=== PATIENT | female | born 1960 | race Caucasian/White ===

== ENCOUNTER 2017-02-15 14:53 | Emergency (ER) | payer BC ==
[~2017-02-15] VITALS: Ht 157.5 cm; Wt 90.7 kg
[~2017-02-15 14:53] MED LIST: GABAPENTIN 400400 M1 PO; PANTOPRAZOLE SO40 M1 PO; PROTONIX 40MG T40 MG PO
[2017-02-15 15:08] LABS: HEMOGLOBIN 14.1 g/dL (12.2-16.2); LYMPH # 2.4 K/mm3 (0.7-4.5); LYMPH % 24.4 % (10-50.0)
--- NOTE | 2017-02-15 15:28 | Emergency Room Report ---
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 Y Clinical Suspician of Infection? N Mental Status: 1 - Regular (Normal Baseline) Sepsis Risk:Possible Sepsis Risk Have you (or family members/close friends) recently traveled outside the [place]? N If Yes, where/when: Have you had exposure to infectious disease within the past month? TB? Other? Specify: Source patient, RN notes reviewed, family, RN/MD Exam Limitations no limitations Comment This is a 56-year-old lady arriving to the emergency room with LEFT lower quadrant abdominal pain, subjective fever, body aches for the past one week. Patient denies any nausea, vomiting, diarrhea. She also is complaining with epigastric pain, radiating to the mid chest. She has a history of esophageal strictures, and she typically undergoes an EGD on a yearly basis with Dr. Barrow, who has been performing balloon dilatations on her. It is unclear if she has a history of Bates's esophagus or not. ALLERGIES Coded Allergies: Opiate Agonists (Narcotics) (NARCOTICS) (VOMITING 05/23/12) Home Medications Active Scripts Pantoprazole Sodium (Protonix 40MG TAB) 40 MG PO BID 10 Days Prov: 05/23/12 Reported Medications Gabapentin (Gabapentin 400MG Capsule) 400 MG PO QHS #30 30 Days Pantoprazole Sodium 40 MG PO DAILY #30 30 Days History Medical History General Angina: No [place]: No Hypertension? No Hyperlipidemia? No CHF? No COPD? No Asthma? No Hernia? No CVA? No Seizures? No Diabetes? No UTI? No Stones? Yes GB Disease: Yes Hepatitis? No Cataracts? No Glaucoma? No TB? No Cancer? 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 Hx LMP N/A Family History Family Hx Diabetes No CAD Yes Hypertension No Hyperlipidemia No Cancer Yes TB No Social History Smoking Hx Smoker: Never Smoker Tobacco: No Packs/day N/A Alcohol Alcohol: No Review of Systems All Other Systems Reviewed and Negative Constitutional chills, malaise, weakness Cardiovascular chest pain Gastrointestinal abdominal pain Physical Exam Vital Signs Vital Signs Date Time Temp Pulse Resp B/P Pulse O2 O2 Flow FiO2 Ox Delivery Rate 02/15 1828 98.5 100 16 148/98 96 02/15 1809 105 16 156/105 96 02/15 1455 98.5 107 20 145/113 96 General Appearance normal appearance, WD/WN, mild distress Respiratory Status Yes: trachea midline, chest symmetrical, non tender chest. No: respiratory distress. Lung Sounds bilateral: normal breath sounds, lungs clear. 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 No Comment 1744-patient reevaluated, appears in minimal distress, discussed results obtained. I have given the patient a copy of the CT scan obtained today, both chest plus abdomen/pelvis, and instructed to take such copy to her PCP in order to obtain proper follow-up. Patient will be started on Flagyl plus Levaquin and instructed her to follow-up with Dr. Barrow regarding her diverticulitis. Results/Orders Laboratory Tests 02/15/17 1500: Sodium 139, Potassium 3.6, Chloride 101, Carbon Dioxide 27, BUN 23 H, Creatinine 1.1 H, Estimated Creat Clear 81, Estimated GFR (MDRD) 51 L, Glucose 135 H, Calcium 9.8, Total Bilirubin 0.3, AST 29, ALT 46, Alkaline Phosphatase 109, Creatine Kinase 90, CK-MB (CK-2) Rel Index 0.6, CK and CKMB Interp 0.5, Troponin I < 0.02, Total Protein 8.1, Albumin 3.8, Globulin 4.3 H, Albumin/ Globulin Ratio 0.9 L, WBC 9.9, RBC 4.96, Hgb 14.1, Hct 42.8, MCV 86.3, RDW 14.0 , Plt Count 261, MPV 8.4, Gran % 70.0, Gran # 6.9, Lymphocytes % 24.4, Monocytes % 3.7, Eosinophils % 1.5, Basophils % 0.4, Lymphocytes # 2.4, Monocytes # 0.4, Eosinophils # 0.2, Basophils # 0.0, PUBS MCHC 32.8, MCH 28.3, Influenza Type A Ag NOT DETECTED, Influenza Type B Ag NOT DETECTED Current Medication Orders Sig/Santhosh Start time Last Medication Dose Route Stop Time Status Admin Iopamidol 75 ML ONCE ONE 02/15 183 DCD 02/15 IV 02/15 183 1822 Levofloxacin 500 MG ONCE ONE 02/15 183 DCD 02/15 PO 02/15 183 1824 Metronidazole 500 MG ONCE ONE 02/15 1830 DCD 02/15 PO 02/15 183 1825 Sodium Chloride 10 ML ONCE ONE 02/15 1830 DCD 02/15 IV 02/15 183 1822 Sodium Chloride 50 ML ONCE ONE 02/15 1830 DCD 02/15 IV 02/15 183 1822 Levofloxacin 0 .STK-MED ONE 02/15 1823 DC .ROUTE Metronidazole 0 .STK-MED ONE 02/15 1822 DC .ROUTE Multi-Ingredient GI 0 .STK-MED ONE 02/15 1538 DC Drug PO Pantoprazole Sodium 0 .STK-MED ONE 02/15 1537 DC .ROUTE Multi-Ingredient GI 60 ML ONCE ONE 02/15 1530 DC 02/15 Drug PO 02/15 1531 1538 Pantoprazole Sodium 40 MG ONCE ONE 02/15 1530 DC 02/15 PO 02/15 1531 1538 Sodium Chloride 10 ML PRN PRN 02/15 1515 DCD IV 02/16 1502 Orders Procedure Date/time Status DIET-NOTHING BY MOUTH 02/[address] ABD/PELVIS REQ 02/[address] CHEST W/PE PROTOCOL REQ 02/15 1642 Complete ELECTROCARDIOGRAM REQUEST 02/15 1502 Active IV SALINE LOCK 02/15 1502 Active INFLUENZA A&B ANTIGENS 02/15 1502 Complete CBC WITH AUTO DIFF 02/15 1502 Complete CARDIAC ENZYMES 02/15 1502 Complete CHEM 12 PROFILE 02/15 1502 Complete 12 LEAD EKG-JAMES (INITIAL) 02/15 UNK Active 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 of ischemic chgs, no ectopy, normal QRS, normal MS, no EKG for comparison, non-spec. ST/Twave chgs, ST elevation, ST depression, LBBB, RBBB, ectopy, abnormal Q waves XRAY/CT/US XRAY/CT/US 1 XRAY chest XR interpretation by reviewed by me, discussed w/radiologist Xray Results no infiltrates, normal heart size, normal lung inflation jake XRAY/CT/US 2 XRAY chest XR interpretation by discussed w/radiologist Xray Results see radiologist's report XRAY/CT/US 3 CT abdomen, pelvis CT interpretation by discussed w/radiologist CT Results see radiologist's report Departure Departure Time of Disposition 1811 Disposition DC Home or Self Care(routine) Clinical Impression Primary Impression: Diverticulitis Secondary Impressions: Adrenal nodule Chest pain Qualifiers: Chest pain type: unspecified Qualified Code: R07.9 - Chest pain, unspecified Esophageal stenosis Hiatal hernia Kidney stone Right thyroid nodule Condition STABLE Referrals ARLETTE BARROW Patient Instructions DI for Diverticulitis Additional Instructions Please take the antibiotics prescribed as directed, follow-up with Dr. Arlette Barrow at your earliest convenience. If abdominal pain worse, or any new symptoms, including fever, please return promptly to this emergency room for reevaluation. It is mandatory that he find/identify a new PCP, in order to manage her other medical problems, as soon as possible. Discharge Counseling Counseled pt/family regarding diagnosis, test results, medications/RX, home care, follow up needs Comment Please take the antibiotics prescribed as directed, follow-up with Dr. Arlette Barrow at your earliest convenience. If abdominal pain worse, or any new symptoms, including fever, please return promptly to this emergency room for reevaluation. It is mandatory that he find/identify a new PCP, in order to manage her other medical problems, as soon as possible. Prescriptions Current Visit Scripts Ciprofloxacin HCl (Cipro 500MG TAB) 500 MG PO BID #20 TAB Metronidazole (Flagyl) 500 MG PO TID #30 TAB ED Critical Care Critical Care Yes Time spent 30-74 min Vital system(s) involved: diverticulitis, complexity of care and workup I was present at bedside for Coordinating pt's care, Interpreting EKGs/Strips , During my initial exam, Reviewing lab results, Reviewing old records, Discussing pt condition, For re-examinations, Examining radiographs If Critical Care minutes are documented, the time involved in the performance of seperately reportable procedures was not counted toward critical care time documented. I directly delivered medical care to this critically ill and/or injured patient. Timely evaluation and treatment was necessary to address the significant organ system(s) dysfunction present in this patient. at 1140
[2017-02-15 15:32] LABS: BUN 23 mg/dL (7-18)
[2017-02-15 15:44] LABS: GFR (ESTIMATED) 51 ML/MIN (59-)
--- NOTE | 2017-02-15 16:53 | RADIOLOGY REPORT PS360 ---
CHEST(2 VIEWS-NOT PORTABLE) HISTORY: CHEST PAINS ON AND OFF ORDERING PHYSICIAN: Osbaldo Linton MD PATIENT AGE: 56 years COMPARISON: 05/23/2012 FINDINGS: The cardiomediastinal silhouette and pulmonary vascularity are within normal limits. Atelectatic changes are present in both lower lobes. Upper lobes are clear. No acute bony anomalies. IMPRESSION: Bibasilar atelectasis.
[2017-02-15] MEDS ORDERED: FLAGYL500 M1 PO (18:16)
[2017-02-15] MEDS ORDERED: CIPRO 500MG TA500 MG PO (18:16)
[2017-02-15 18:28] VITALS: BP 148/98
--- NOTE | 2017-02-16 04:41 | RADIOLOGY REPORT PS360 ---
CTA-CHEST HISTORY: CHEST PAIN ORDERING PHYSICIAN: Osbaldo Linton MD PATIENT AGE: 56 years TECHNIQUE: Helical acquisition obtained following the bolus administration of 60 mL of Isovue 370 followed by a saline bolus. Axial, sagittal, and coronal reformatted images are generated and reviewed. COMPARISON: None FINDINGS: PULMONARY ARTERIES:No pulmonary embolus evident. AORTA:No acute finding. No thoracic aortic aneurysm or dissection evident LUNGS:Atelectatic versus fibrotic changes within the lingula PLEURAL SPACES:No significant effusion. No evidence of pneumothorax. HEART:Unremarkable. Normal heart size. No significant pericardial effusion. Coronary artery calcification noted MEDIASTINAL AND HILAR STRUCTURES:There is a rim-enhancing nodule measuring 15 mm within the right thyroid lobe lower pole incompletely imaged. Follow-up ultrasound recommended. No mediastinal adenopathy. No hilar adenopathy BONY STRUCTURES:Spondylosis of thoracic spine LYMPH NODES:No enlarged lymph nodes evident UPPER ABDOMEN:Small hiatal hernia. Diffuse fatty liver IMPRESSION: 1. No evidence of pulmonary embolus or aortic aneurysm or dissection. 2. Coronary artery calcifications suggesting coronary artery disease. 3. Small hiatal hernia. 4. Rim enhancing right thyroid nodule. Consider ultrasound for further evaluation
--- NOTE | 2017-02-16 04:52 | RADIOLOGY REPORT PS360 ---
CT ABD PELVIS W/ CONTRAST CLINICAL INDICATION: Generalized abdominal pain ABD PAIN ORDERING PHYSICIAN: Osbaldo Linton MD PATIENT AGE: 56 years COMPARISON: 07/23/2014 TECHNIQUE: Axial images obtained with sagittal and coronal reformats. PROCEDURE: Oral Contrast: None IV Contrast: 70 mL is Isovue-370 performed in conjunction with the chest CT. FINDINGS: There is diffuse fatty liver. 13 mm isodensity in the hepatic dome medially not significantly changed probably benign. Prior cholecystectomy. No biliary dilatation. Borderline splenomegaly at 13 cm. The pancreas and right adrenal gland are unremarkable. There is a 1.7 cm left adrenal nodule which demonstrates greater than 50% washout on the delayed images consistent with an adenoma. This is slightly increased in size previously measuring 1.5 cm. Consider follow-up unenhanced exam in 3 months to confirm short-term stability. No hydronephrosis. There is a 6 mm nonobstructing stone in the mid polar region of the right kidney. No ureteral calculi 2.8 cm isodense lesion involves the lower pole the left kidney medially. Somewhat more dense than one expects for simple cyst but does not demonstrate contrast enhancement and has been present dating back to 12/01/2013. Recommend ultrasound to confirm cystic nature. No intestinal obstruction or free air. There is extensive colonic diverticulosis most numerous in the descending and sigmoid colon with minimal haziness and stranding of the fat surrounding a diverticulum of the sigmoid colon seen on coronal image 48 through 52 and axial image 71 through 73 consistent with mild diverticulitis. No abscess or extra colonic air. No evidence of appendicitis. There has been prior hysterectomy. No acute bony findings. There is a tiny umbilical hernia containing fat. IMPRESSION: 1. Extensive diverticulosis with minimal diverticulitis of the sigmoid colon. 2. Probable left adrenal adenoma. Consider follow-up to confirm stability. 3. Right nephrolithiasis nonobstructing. 4. Slightly enlarging isodense left renal lesion which may be related to a cyst. Recommend ultrasound to confirm cystic nature 5. Fatty liver with stable isodensity of the hepatic dome
== END 2017-02-15 18:30 | disposition home or self-care (01) ==
LOC: ER 14:53
PROVIDERS: Emergency Medicine
DX: K57.92 Diverticulitis of intestine, part unspecified, without perforation or abscess without bleeding (principal); R07.9 Chest pain, unspecified
CPT/HCPCS: Q9967